=== PATIENT | male | born 1975 | race Caucasian/White ===

== ENCOUNTER 2016-07-18 21:24 | Emergency (ER) | payer OTHER ==
[2016-07-18 21:32] VITALS: BP 124/67; PULSE 96; RESP 20; TEMP 98.2
--- NOTE | 2016-07-18 22:20 | ED ---
SOB HPI - General Chief Complaint: Shortness of Breath Stated Complaint: exposed to chemicals Time Seen by Provider: 07/18/16 21:33 Source: patient, RN notes reviewed Mode of arrival: ambulatory Limitations: no limitations - History of Present Illness Initial Comments: This patient is a 40-year-old man who presents with complaint that he is feeling short of breath and having pain everywhere, including his chest, which developed about 45 minutes after he had used a waterproofing spray on his boots. I have examined the aerosol can which states that the main ingredient is heptane. The patient is complaining of nonproductive cough, shortness of breath. He also complains that his whole body hurts, including his back and neck. He states that he had broken his neck 5 years ago and he has chronic pain. He states that this feels like the worst pain is ever had. MD Complaint: shortness of breath, cough, chest pain Onset/Timin -: hour(s) - Related Data Home Medications Medication Instructions Recorded Confirmed cloNIDine HCL [Catapres] 0.1 mg PO DAILY 07/18/16 07/18/16 Allergies Allergy/AdvReac Type Severity Reaction Status Date / Time No Known Allergies Allergy Verified 07/18/16 21:39 Review of Systems ROS Statement: Those systems with pertinent positive or pertinent negative responses have been documented in the HPI. ROS Other: All systems not noted in ROS Statement are negative. Constitutional: Denies: fever, weakness Respiratory: Reports: cough, dyspnea, wheezes. Denies: hemoptysis Cardiovascular: Reports: chest pain. Denies: palpitations, edema, syncope Gastrointestinal: Denies: abdominal pain, vomiting, diarrhea Genitourinary: Denies: dysuria Musculoskeletal: Reports: back pain, arthralgia, myalgia Skin: Denies: rash, lesions Neurological: Reports: headache. Denies: weakness, numbness Past Medical History Past Medical History: Hypertension History of Any Multi-Drug Resistant Organisms: None Reported Past Surgical History: Orthopedic Surgery Additional Past Surgical History / Comment(s): CERVIAL SPINE FUSION Past Psychological History: Anxiety Smoking Status: Current every day smoker Past Alcohol Use History: Rare Past Drug Use History: Marijuana General Exam Limitations: no limitations General appearance: alert, in no apparent distress, anxious Head exam: Present: atraumatic, normocephalic Eye exam: Present: normal appearance. Absent: scleral icterus, conjunctival injection ENT exam: Present: normal oropharynx Neck exam: Present: normal inspection, full ROM. Absent: tenderness Respiratory exam: Present: wheezes (There is a trace expiratory wheeze). Absent : respiratory distress, rales, rhonchi, stridor, accessory muscle use, decreased breath sounds, prolonged expiratory Cardiovascular Exam: Present: regular rate, normal rhythm, normal heart sounds. Absent: systolic murmur, diastolic murmur, rubs, gallop GI/Abdominal exam: Present: soft. Absent: tenderness, guarding, rebound Extremities exam: Present: normal inspection. Absent: pedal edema, calf tenderness Back exam: Present: normal inspection. Absent: vertebral tenderness Neurological exam: Present: alert Skin exam: Present: warm, dry, intact, normal color. Absent: rash Course Vital Signs 07/18/16 21:28 Temperature 98.2 F Pulse Rate 96 Respiratory 20 Rate Blood Pressure 124/67 O2 Sat by Pulse 98 Oximetry Medical Decision Making - Medical Decision Making This patient is a 41-year-old man with inhalational exposure to a water resistant spray that contained heptane. The patient grew tired of waiting for his repeat chest x-ray and walked out. I did discuss warning signs and symptoms with his significant other who remained behind, and she will bring him back should any these develop. Disposition Clinical Impression: Exposure to chemical inhalation Disposition: Left Against Medical Advice Condition: Undetermined Referrals: Neil Portillo DO [Primary Care Provider] - 1-2 days
[2016-07-18] MEDS ORDERED: IBUPROFEN 400 MG TAB PO STA (22:21)
--- NOTE | 2016-07-18 22:33 | XR ---
EXAMINATION TYPE: XR chest 2V DATE OF EXAM: 07/18/2016 10:27 PM COMPARISON: NONE HISTORY: Cough and short of breath TECHNIQUE: Frontal and lateral views of the chest are obtained. FINDINGS: Heart and mediastinum are normal. Lungs are clear. There are no hilar masses. There are ol d left-sided healed rib fractures. Cervical spine fusion surgery is noted. IMPRESSION: No active cardiopulmonary disease. Normal heart.
== END 2016-07-19 00:34 | disposition left against medical advice (07) ==
LOC: EC 21:24
DX: Z77.028 Contact with and (suspected) exposure to other hazardous aromatic compounds (principal); R06.02 Shortness of breath; R07.9 Chest pain, unspecified; X58.XXXA Exposure to other specified factors, initial encounter; I10 Essential (primary) hypertension; Z98.1 Arthrodesis status; F17.200 Nicotine dependence, unspecified, uncomplicated; Z79.899 Other long term (current) drug therapy
CPT/HCPCS: 71020; 99284

== ENCOUNTER → 2016-08-14 | Outpatient (CLI) | payer OTHER ==
--- NOTE | 2016-08-14 08:55 | MR ---
MRI CERVICAL SPINE: CLINICAL HISTORY: Cervicalgia, radiculopathy, and dislocation of unspecified cervical vertebra all pe r order. Headache with neck pain and extremity numbness since October 2001 after injury and surgery. TECHNIQUE: Multiplanar, multisequence imaging of the cervical spine is performed without and with IV contrast, 15 cc of gadolinium was given intravenously. COMPARISON: Outside MRI cervical spine report November 06, 2011. FINDINGS: Sagittal images of the cervical spine show the craniocervical junction to appear within nor mal limits. The cervical and upper thoracic spinal cord is normal in course, caliber, and signal. V ertebral alignment is satisfactory. There is artifact from posterior fusion hardware from C5 through T1 levels bilaterally. The vertebral body and intravertebral disk heights are normal above and below surgical levels. Minimal height loss anterior superior C7 endplate is noted. No suspicious disc manpreet iations are seen. The bone marrow signal intensity is within normal limits. No suspicious postcontras t enhancement is noted. Axial images show C2-C3 level to appear within normal limits currently. Axial images at C3-C4 level show broad-based right paracentral disc protrusion effacing anterior thec al sac. There are uncovertebral facet degenerative changes bilaterally contributing to moderate right -sided neural foraminal narrowing on axial image 48. Left-sided neural foramen is patent. Axial images at C4-C5 level show posterior spur disc complex minimally effacing anterior thecal sac, bilateral neural foramina are felt patent. Axial images at C5-C6 level show artifact from posterior fusion hardware. There is right paracentral spur disc complex mildly effacing anterior thecal sac on axial image 31. Bilateral neural foramina ar e patent. Axial images at C6-C7 level show artifact from posterior fusion hardware, bilateral neural foramina a re patent. Spinal canal is well preserved. Axial images at C7-T1 level show similar findings to C6-C7 level. IMPRESSION: Satisfactory alignment after interval posterior fusion surgery with some multilevel degen erative changes seen as detailed above, new degenerative finding C3-C4 level suspected based on prior report.
== END ==
LOC: RADMRIMAIN 07:40
PROVIDERS: ATTEND Neurological Surgery
DX: M50.31 Other cervical disc degeneration, high cervical region (principal)
CPT/HCPCS: 72156; A9577

== ENCOUNTER → 2016-10-12 | Outpatient (CLI) | payer OTHER ==
--- NOTE | 2016-10-12 09:54 | US ---
EXAMINATION TYPE: US carotid duplex BILAT DATE OF EXAM: 10/12/2016 9:39 AM COMPARISON: NONE CLINICAL HISTORY: H53.7 blurred vision. Blurred vision EXAM MEASUREMENTS: RIGHT: Peak Systolic Velocity (PSV) cm/sec ----- Right CCA: 106.2 ----- Right ICA: 119.5 ----- Right ECA: 115.1 ICA/CCA ratio: 1.1 RIGHT: End Diastole cm/sec ----- Right CCA: 35.0 ----- Right ICA: 49.8 ----- Right ECA: 17.2 LEFT: Peak Systolic Velocity (PSV) cm/sec ----- Left CCA: 123.2 ----- Left ICA: 132.7 ----- Left ECA: 116.6 ICA/CCA ratio: 1.1 LEFT: End Diastole cm/sec ----- Left CCA: 38.6 ----- Left ICA: 41.7 ----- Left ECA: 15.7 VERTEBRALS (direction of flow): Right Vertebral: Antegrade Left Vertebral: Antegrade Bilateral intimal thickening, elevated velocities: left proximal CCA and left proximal ICA, no signif icant stenosis IMPRESSION: 1. Bilateral intimal thickening with no significant hemodynamic stenosis.
--- NOTE | 2016-10-14 12:28 | ECHOF ---
Referral Reason:H54.7 loss of vision MEASUREMENTS -------- HEIGHT: 177.8 cm WEIGHT: 77.1 kg BP: 115/55 RVIDd: 2.9 cm (< 3.3) IVSd: 0.9 cm (0.6 - 1.1) LVIDd: 4.6 cm (3.9 - 5.3) LVPWd: 0.9 cm (0.6 - 1.1) IVSs: 1.5 cm LVIDs: 3.3 cm LVPWs: 1.7 cm LA Diam: 3.5 cm (2.7 - 3.8) LAESV Index (A-L): 28.65 ml/m Ao Diam: 2.8 cm (2.0 - 3.7) AV Cusp: 2.3 cm (1.5 - 2.6) MV EXCURSION: 17.007 mm (> 18.000) MV EF SLOPE: 130 mm/s (70 - 150) EPSS: 0.4 cm MV E Jenaro: 0.85 m/s MV DecT: 280 ms MV A Jenaro: 0.66 m/s MV E/A Ratio: 1.29 FINDINGS -------- Sinus rhythm. This was a technically good study. The left ventricular size is normal. Left ventricular wall thickness is normal. Overall left ventricular systolic function is normal with, an EF between 60 - 65 %. The right ventricle is normal in size. Normal LA size by volume 22+/-6 ml/m2. The right atrium is normal in size. The aortic valve is trileaflet and appears structurally normal. The mitral valve is normal. The tricuspid valve appears structurally normal. The pulmonic valve is normal. The aortic root, ascending aorta and aortic arch are normal. Normal inferior vena cava with normal inspiratory collapse consistent with estimated right atrial pressure of 5 mmHg. The pericardium is normal. CONCLUSIONS -------- 1. Sinus rhythm. 2. The mitral valve is normal. 3. The tricuspid valve appears structurally normal. 4. The pulmonic valve is normal. 5. The aortic root, ascending aorta and aortic arch are normal. 6. Normal inferior vena cava with normal inspiratory collapse consistent with estimated right atrial pressure of 5 mmHg. 7. The pericardium is normal. 8. This was a technically good study. 9. The left ventricular size is normal. 10. Left ventricular wall thickness is normal. 11. Overall left ventricular systolic function is normal with, an EF between 60 - 65 %. 12. The right ventricle is normal in size. 13. Normal LA size by volume 22+/-6 ml/m2. 14. The right atrium is normal in size. 15. The aortic valve is trileaflet and appears structurally normal. [employer]: Jessica Allred RDCS
== END | disposition home or self-care (01) ==
LOC: RADUSMAIN 09:10
PROVIDERS: ATTEND Family Medicine
DX: I77.89 Other specified disorders of arteries and arterioles (principal); H54.7 Unspecified visual loss; H53.8 Other visual disturbances
CPT/HCPCS: 93306; 93880

== ENCOUNTER 2016-11-02 10:56 | Emergency (ER) | payer OTHER ==
[2016-11-02 11:01] VITALS: BP 120/82; PULSE 94; RESP 20; TEMP 97.5
--- NOTE | 2016-11-02 12:49 | ED ---
Wound/Laceration HPI - General Chief Complaint: Wound/Laceration Stated Complaint: laceration Time Seen by Provider: 11/02/16 11:40 Source: patient, RN notes reviewed Mode of arrival: wheelchair Limitations: no limitations - History of Present Illness Initial Comments: Patient is a 41-year-old male presents to the emergency room for evaluation right thumb laceration and left thumb pain. Patient states he cut his right thumb with a pocket knife earlier today. Patient states out of anger he went and threw a bag with his left hand and injured his left thumb. Patient states that he is having 8 out of 10 pain in his left thumb. Patient states he has barely has any pain in his right thumb where the laceration site is. Patient states his last tetanus vaccine was about a year ago. Patient denies any numbness or tingling in any of his thumbs. Patient denies taking blood thinners. Patient denies any other injuries during incident. - Related Data Home Medications Medication Instructions Recorded Confirmed No Known Home Medications [No 11/02/16 11/02/16 Known Home Medications] Allergies Allergy/AdvReac Type Severity Reaction Status Date / Time No Known Allergies Allergy Verified 11/02/16 11:01 Review of Systems ROS Statement: Those systems with pertinent positive or pertinent negative responses have been documented in the HPI. ROS Other: All systems not noted in ROS Statement are negative. Past Medical History Past Medical History: Hypertension History of Any Multi-Drug Resistant Organisms: None Reported Past Surgical History: Orthopedic Surgery Additional Past Surgical History / Comment(s): CERVIAL SPINE FUSION Past Psychological History: Anxiety Smoking Status: Current every day smoker Past Alcohol Use History: Rare Past Drug Use History: Marijuana General Exam - General Exam Comments Initial Comments: Sitting in exam room, no acute distress. Limitations: no limitations General appearance: alert, in no apparent distress Head exam: Present: atraumatic, normocephalic, normal inspection Eye exam: Present: normal appearance ENT exam: Present: normal exam Neck exam: Present: normal inspection Respiratory exam: Absent: respiratory distress Left Forearm Wrist exam: Present: tenderness over anatomical snuff box Hand Wrist exam: Present: tenderness (Tenderness on palpating over the base of the thumb and proximal phalanx of the thumb) Neuro motor exam: Present: wrist extension intact Vascular: Present: normal capillary refill (Capillary refill less than 2 seconds ), radial pulse (2+), ulnar pulse (2+) Right Hand Wrist exam: Present: full ROM, laceration (2cm L shaped laceration on the palmar portion of the distal phalanx of the right thumb, no active bleeding.). Absent: normal inspection Vascular: Present: normal capillary refill (Capillary refill less than 2 seconds ), radial pulse (2+), ulnar pulse (2+) Back exam: Present: normal inspection Neurological exam: Present: alert, oriented X3 Psychiatric exam: Present: normal affect, normal mood Skin exam: Present: warm, dry. Absent: rash Course Vital Signs 11/02/16 10:58 Temperature 97.5 F L Pulse Rate 94 Respiratory 20 Rate Blood Pressure 120/82 O2 Sat by Pulse 98 Oximetry Medical Decision Making - Medical Decision Making Patient is a 38-year-old male presents to the emergency room for evaluation of right thumb laceration and left thumb pain. Patient refused stitches for right thumb. Explained to patient increase risk of infection. Patient still refused stitches and just wanted a bandage. Left hand x-ray shows no acute fractures or dislocations. However patient does have anatomical snuffbox tenderness. Plan was to place patient in a thumb spica splint, follow up with photogrammetric compilation specialist and send him home with antibiotics for right thumb laceration since patient did not want stitches. Patient left before discharge or splint placed. Disposition Clinical Impression: Laceration of right thumb, Left thumb sprain Disposition: Left Against Medical Advice Condition: Stable Instructions: Finger Laceration (ED), Suspected Fracture (ED) Referrals: Neil Portillo DO [Primary Care Provider] - 1-2 days Time of Disposition: 13:39
--- NOTE | 2016-11-02 13:12 | XR ---
EXAMINATION TYPE: XR hand complete LT DATE OF EXAM: 11/02/2016 12:59 PM COMPARISON: NONE HISTORY: Pain TECHNIQUE: Three views are submitted. FINDINGS: The osseous structures are intact. The joint spaces are preserved and there is no acute fracture or dislocation. IMPRESSION: 1. No definite acute fracture or dislocation if symptoms persist, follow-up study in 7 to 10 days wo uld be suggested
== END 2016-11-02 13:39 | disposition left against medical advice (07) ==
LOC: EC 10:56
DX: S63.602A Unspecified sprain of left thumb, initial encounter (principal); S61.011A Laceration without foreign body of right thumb without damage to nail, initial encounter; F17.200 Nicotine dependence, unspecified, uncomplicated; W21.09XA Struck by other hit or thrown ball, initial encounter; W26.0XXA Contact with knife, initial encounter
CPT/HCPCS: 99282

== ENCOUNTER 2016-12-09 22:24 | Emergency (ER) | payer OTHER ==
[2016-12-09 22:40] VITALS: TEMP 97.5
[2016-12-09] MEDS ORDERED: KETOROLAC 30 MG/ML 1 ML VIAL IVP STA (22:57)
[2016-12-09] MEDS ORDERED: SODIUM CHLORIDE 0.9% 1,000 ML IV STA ×2 (22:57)
[2016-12-09] MEDS ORDERED: ONDANSETRON 4 MG/2 ML VIAL IVP STA (22:57)
--- NOTE | 2016-12-09 23:16 | ED ---
Abdominal Pain HPI - General Chief Complaint: Abdominal Pain Stated Complaint: Abd Pain Time Seen by Provider: 12/09/16 22:46 Source: patient, RN notes reviewed, old records reviewed Mode of arrival: ambulatory Limitations: no limitations - History of Present Illness Initial Comments: 41-year-old male presents the ED chief complaint of diffuse abdominal pain for the past 2 days. Patient states that he has this similar pain off and on for the past few months. Patient reports these haven't multiple to the vomiting since eating with a pizza this morning. Denies any surgical history. Patient states that the pain is mainly in the mid to lower abdomen. He reports that he has a family history of Crohn's disease. Denies any blood in his stools or vomit. He states that he did have a normal bowel movement earlier today. Patient denies any recent fever, chills, shortness of breath, chest pain, back pain, numbness or tingling, dysuria or hematuria, constipation or diarrhea, headaches or visual changes, or any other current symptoms - Related Data Home Medications Medication Instructions Recorded Confirmed Multivitamins, Thera [Multivitamin 1 tab PO DAILY 12/12/16 12/12/16 (formulary)] Hickman-3/Dha/Epa/Fish Oil [Fish Oil 1 cap PO DAILY 12/12/16 12/12/16 500 mg Softgel] Allergies Allergy/AdvReac Type Severity Reaction Status Date / Time No Known Allergies Allergy Verified 12/12/16 20:06 Review of Systems ROS Statement: Those systems with pertinent positive or pertinent negative responses have been documented in the HPI. ROS Other: All systems not noted in ROS Statement are negative. Past Medical History Past Medical History: Hypertension Additional Past Medical History / Comment(s): ulcerative colitis History of Any Multi-Drug Resistant Organisms: None Reported Past Surgical History: Orthopedic Surgery Additional Past Surgical History / Comment(s): CERVIAL SPINE FUSION Past Psychological History: Anxiety Smoking Status: Current every day smoker Past Alcohol Use History: Rare Past Drug Use History: Marijuana General Exam Limitations: no limitations General appearance: alert, in no apparent distress Head exam: Present: atraumatic, normocephalic, normal inspection Eye exam: Present: normal appearance, PERRL, EOMI. Absent: scleral icterus, conjunctival injection, periorbital swelling ENT exam: Present: normal exam, mucous membranes moist Neck exam: Present: normal inspection. Absent: tenderness, meningismus, lymphadenopathy Respiratory exam: Present: normal lung sounds bilaterally. Absent: respiratory distress, wheezes, rales, rhonchi, stridor Cardiovascular Exam: Present: regular rate, normal rhythm, normal heart sounds. Absent: systolic murmur, diastolic murmur, rubs, gallop, clicks GI/Abdominal exam: Present: soft, normal bowel sounds. Absent: distended, tenderness, guarding, rebound, rigid Extremities exam: Present: normal inspection, full ROM, normal capillary refill. Absent: tenderness, pedal edema, joint swelling, calf tenderness Back exam: Present: normal inspection Neurological exam: Present: alert, oriented X3, CN II-XII intact Psychiatric exam: Present: normal affect Skin exam: Present: warm, dry, intact, normal color. Absent: rash Course Vital Signs 12/09/16 12/10/16 22:35 00:39 Temperature 97.5 F L Pulse Rate 79 68 Respiratory 16 20 Rate Blood Pressure 127/90 141/89 O2 Sat by Pulse 95 100 Oximetry Medical Decision Making - Medical Decision Making 41-year-old male presents the ED chief complaint of diffuse abdominal pain for the past 2 days. Patient states that he has this similar pain off and on for the past few months. Patient reports these haven't multiple to the vomiting since eating with a pizza this morning. Denies any surgical history. Patient states that the pain is mainly in the mid to lower abdomen. He reports that he has a family history of Crohn's disease. Denies any blood in his stools or vomit. He states that he did have a normal bowel movement earlier today. PAtient does have diffuse tenderness. Labs reviewed, negative for significant acute process. Patient case discussed with Dr. Le, discussed that it is unusual for ileous without previous surgery. Recommended CT scan with patient pain. Patient then refused CT scan and rectal exam. Discussed that patient will sign AMA And will be given Rx for bentyl and zofran if this may help. Discussed risk of leaving. Patient is adament. Patient will be discharged AMA. - Lab Data Result diagrams: 12/09/16 23:00 12/09/16 23:00 Lab Results 12/09/16 12/09/16 12/09/16 Range/Units 23:00 23:00 23:00 WBC 9.0 (3.8-10.6) k/uL RBC 4.53 (4.30-5.90) m/uL Hgb 14.5 (13.0-17.5) gm/dL Hct 41.4 (39.0-53.0) % MCV 91.2 (80.0-100.0) fL MCH 32.0 (25.0-35.0) pg MCHC 35.0 (31.0-37.0) g/dL RDW 12.6 (11.5-15.5) % Plt Count 233 (150-450) k/uL Neutrophils % 70 % Lymphocytes % 23 % Monocytes % 5 % Eosinophils % 1 % Basophils % 0 % Neutrophils # 6.3 (1.3-7.7) k/uL Lymphocytes # 2.0 (1.0-4.8) k/uL Monocytes # 0.4 (0-1.0) k/uL Eosinophils # 0.1 (0-0.7) k/uL Basophils # 0.0 (0-0.2) k/uL PT 10.5 (9.0-12.0) sec INR 1.0 (<1.1) APTT 23.3 (22.0-30.0) sec Sodium 141 (137-145) mmol/L Potassium 4.3 (3.5-5.1) mmol/L Chloride 108 H (98-107) mmol/L Carbon Dioxide 24 (22-30) mmol/L Anion Gap 9 mmol/L BUN 11 (9-20) mg/dL Creatinine 0.80 (0.66-1.25) mg/dL Est GFR (MDRD) Af Amer >60 (>60 ml/min/1.73 sqM) Est GFR (MDRD) Non-Af >60 (>60 ml/min/1.73 sqM) Glucose 88 (74-99) mg/dL Calcium 9.6 (8.4-10.2) mg/dL Total Bilirubin 0.7 (0.2-1.3) mg/dL AST 27 (17-59) U/L ALT 30 (21-72) U/L Alkaline Phosphatase 54 (38-126) U/L Troponin I (0.000-0.034) ng/mL Total Protein 6.6 (6.3-8.2) g/dL Albumin 4.1 (3.5-5.0) g/dL Amylase <30 L (30-110) U/L Lipase 33 (23-300) U/L Urine Color Urine Appearance (Clear) Urine pH (5.0-8.0) Ur Specific [place] (1.001-1.035) Urine Protein (Negative) Urine Glucose (UA) (Negative) Urine Ketones (Negative) Urine Blood (Negative) Urine Nitrite (Negative) Urine Bilirubin (Negative) Urine Urobilinogen (<2.0) mg/dL Ur Leukocyte Esterase (Negative) 12/09/16 12/10/16 Range/Units 23:00 00:19 WBC (3.8-10.6) k/uL RBC (4.30-5.90) m/uL Hgb (13.0-17.5) gm/dL Hct (39.0-53.0) % MCV (80.0-100.0) fL MCH (25.0-35.0) pg MCHC (31.0-37.0) g/dL RDW (11.5-15.5) % Plt Count (150-450) k/uL Neutrophils % % Lymphocytes % % Monocytes % % Eosinophils % % Basophils % % Neutrophils # (1.3-7.7) k/uL Lymphocytes # (1.0-4.8) k/uL Monocytes # (0-1.0) k/uL Eosinophils # (0-0.7) k/uL Basophils # (0-0.2) k/uL PT (9.0-12.0) sec INR (<1.1) APTT (22.0-30.0) sec Sodium (137-145) mmol/L Potassium (3.5-5.1) mmol/L Chloride (98-107) mmol/L Carbon Dioxide (22-30) mmol/L Anion Gap mmol/L BUN (9-20) mg/dL Creatinine (0.66-1.25) mg/dL Est GFR (MDRD) Af Amer (>60 ml/min/1.73 sqM) Est GFR (MDRD) Non-Af (>60 ml/min/1.73 sqM) Glucose (74-99) mg/dL Calcium (8.4-10.2) mg/dL Total Bilirubin (0.2-1.3) mg/dL AST (17-59) U/L ALT (21-72) U/L Alkaline Phosphatase (38-126) U/L Troponin I <0.012 (0.000-0.034) ng/mL Total Protein (6.3-8.2) g/dL Albumin (3.5-5.0) g/dL Amylase (30-110) U/L Lipase (23-300) U/L Urine Color Light Yellow Urine Appearance Clear (Clear) Urine pH 8.0 (5.0-8.0) Ur Specific [place] 1.005 (1.001-1.035) Urine Protein Negative (Negative) Urine Glucose (UA) Negative (Negative) Urine Ketones Negative (Negative) Urine Blood Negative (Negative) Urine Nitrite Negative (Negative) Urine Bilirubin Negative (Negative) Urine Urobilinogen <2.0 (<2.0) mg/dL Ur Leukocyte Esterase Negative (Negative) - Radiology Data Radiology results: report reviewed Abdominal xray shows generalized ileus. Disposition Clinical Impression: Abdominal pain Disposition: Left Against Medical Advice Condition: Good Instructions: Abdominal Pain (ED) Additional Instructions: Patient needs to follow-up with his primary physician. He can take the medication as directed. Rest, remain hydrated. Her liquid diet for the next 48 hours. Referrals: Neil Portillo DO [Primary Care Provider] - 1-2 days Time of Disposition: 00:46
[2016-12-09 23:43] LABS: Basophils % (A) 0 %; CH 32.4; CHCM 35.7; Eosinophils # (A) 0.1 k/uL (0-0.7); Eosinophils % (A) 1 %; HCT 41.4 % (39.0-53.0); HDW 2.35; HGB 14.5 gm/dL (13.0-17.5); Luc # (Auto) 0.12; Luc % (Auto) 1; Lymphocytes % (A) 23 %; MCV 91.2 fL (80.0-100.0); Mean Platelet Volume 7.5; Monocytes # (A) 0.4 k/uL (0-1.0); Monocytes % (A) 5 %; Neutrophils # (A) 6.3 k/uL (1.3-7.7); Neutrophils % (A) 70 %; RBC 4.53 m/uL (4.30-5.90); RDW 12.6 % (11.5-15.5); WBC (Perox) 8.49
[2016-12-09 23:54] LABS: ALT 30 U/L (21-72); AST 27 U/L (17-59); Alkaline Phosphatase 54 U/L (38-126); Amylase <30 U/L (30-110); Anion Gap 9 mmol/L; Blood Urea Nitrogen 11 mg/dL (9-20); Calcium 9.6 mg/dL (8.4-10.2); Carbon Dioxide 24 mmol/L (22-30); Chloride 108 mmol/L (98-107); Glucose 88 mg/dL (74-99); Non-African American GFR(MDRD) >60 (>60 ml/min/1.73 sqM); Potassium 4.3 mmol/L (3.5-5.1); Sodium 141 mmol/L (137-145); Total Bilirubin 0.7 mg/dL (0.2-1.3); Total Protein 6.6 g/dL (6.3-8.2)
[2016-12-09 23:58] LABS: Partial Thromboplastin Time 23.3 sec (22.0-30.0); Prothrombin Time 10.5 sec (9.0-12.0)
--- NOTE | 2016-12-10 00:15 | XR ---
EXAM: XR Abdomen, 1 View CLINICAL HISTORY: Abdominal pain. TECHNIQUE: Frontal supine view of the abdomen/pelvis. Total images: 2. COMPARISON: No relevant prior studies available. FINDINGS: Intraperitoneal space: No free air. Gastrointestinal tract: No significant distention of small bowel loops to suggest obstruction. Moderate colonic gas with some air-fluid levels at the right abdomen. Bones/joints: Unremarkable as visualized. IMPRESSION: 1. No evidence of small bowel obstruction. 2. Possible colonic ileus. 3. No free air.
[2016-12-10] MEDS ORDERED: DICYCLOMINE 10 MG/ML 2 ML AMP IM STA (00:28)
[2016-12-10 00:29] LABS: Appearance,Urine Clear (Clear); Bilirubin,Urine Negative (Negative); Glucose,Urine (UA) Negative (Negative); Ketones,Urine Negative (Negative); Leukocyte Esterase,Urine Negative (Negative); Nitrite,Urine Negative (Negative); Protein,Urine Negative (Negative); Specific Gravity,Urine 1.005 (1.001-1.035); UA Billing (MACRO vs. MICRO) CHEM; Urobilinogen,Urine <2.0 mg/dL (<2.0)
[2016-12-10] MEDS ORDERED: SODIUM CHLORIDE 0.9% 1,000 ML IV ONE (00:38)
[2016-12-10] MEDS ORDERED: RX INFO: IV CONTRAST WAS GIVEN 1 EACH MISC MISCELLANE PRN (00:38)
[2016-12-10 00:47] VITALS: BP 141/89; PULSE 68; RESP 20
== END 2016-12-10 00:59 | disposition left against medical advice (07) ==
LOC: EC 22:24
DX: R10.84 Generalized abdominal pain (principal); F17.200 Nicotine dependence, unspecified, uncomplicated; Z87.19 Personal history of other diseases of the digestive system; Z53.29 Procedure and treatment not carried out because of patient's decision for other reasons; Z79.899 Other long term (current) drug therapy
CPT/HCPCS: 99284; 96372; 96374; 96375; 96361 ×2; 36415; 80053; 82150; 83690; 84484; 85025; 85610; 85730; 81003; 74000; J0500; J2405; J1885

== ENCOUNTER 2016-12-12 19:38 | Observation (INO) | payer OTHER ==
[2016-12-12] MEDS ORDERED: SODIUM CHLORIDE 0.9% 1,000 ML IV ONE (20:05)
[2016-12-12] MEDS ORDERED: KETOROLAC 30 MG/ML 1 ML VIAL IVP STA (20:06)
[2016-12-12] MEDS ORDERED: ONDANSETRON 4 MG/2 ML VIAL IVP STA (20:06)
--- NOTE | 2016-12-12 20:09 | ED ---
Abdominal Pain HPI <Bharathi Santo - Last Filed: 12/12/16 21:47> - General Source: patient, RN notes reviewed Mode of arrival: ambulatory Limitations: no limitations <Sindhu Rice - Last Filed: 12/12/16 23:50> - General Chief Complaint: Abdominal Pain Stated Complaint: abd pain-return visit Time Seen by Provider: 12/12/16 19:50 - History of Present Illness Initial Comments: Patient is a 41-year-old male presents to the emergency room for evaluation of abdominal pain. Patient states he was here about 3 days ago with abdominal pain. Patient states they did blood work and he was about to send him to a CT scan and patient freaked out. Patient states that he was feeling better and the CT scan worried him so he left AGAINST MEDICAL ADVICE. Patient states yesterday the pain was worsening so he went to [facility]. Patient states they redid blood work and sent him to a CT scan told him he had appendicitis. Patient states he made all the way into the operating room and then freaked out and again left AGAINST MEDICAL ADVICE. Patient states the the abdominal pain has subsided today. Patient states he is feeling a little better than he was over the past few days. Patient states that his family talked him into coming to the emergency room to get his appendix out. Patient states he is having 3 out of 10 right lower quadrant pain. Patient states he still nauseous but denies any vomiting today. Patient denies any history of abdominal surgeries. Patient denies any new or worsening symptoms today. Patient denies fevers or chills. (Sindhu Rice) - Related Data Home Medications Medication Instructions Recorded Confirmed Multivitamins, Thera [Multivitamin 1 tab PO DAILY 12/12/16 12/12/16 (formulary)] [place]-3/Dha/Epa/Fish Oil [Fish Oil 1 cap PO DAILY 12/12/16 12/12/16 500 mg Softgel] Allergies Allergy/AdvReac Type Severity Reaction Status Date / Time No Known Allergies Allergy Verified 12/12/16 20:06 Review of Systems ROS Other: All systems not noted in ROS Statement are negative. <Bharathi Santo - Last Filed: 12/12/16 21:47> ROS Other: All systems not noted in ROS Statement are negative. <Sindhu Rice - Last Filed: 12/12/16 23:50> ROS Statement: Those systems with pertinent positive or pertinent negative responses have been documented in the HPI. Past Medical History Past Medical History: Hypertension Additional Past Medical History / Comment(s): ulcerative colitis History of Any Multi-Drug Resistant Organisms: None Reported Past Surgical History: Orthopedic Surgery Additional Past Surgical History / Comment(s): CERVIAL SPINE FUSION Past Psychological History: Anxiety Smoking Status: Current every day smoker Past Alcohol Use History: Rare Past Drug Use History: Marijuana <Sindhu Rice - Last Filed: 12/12/16 23:50> General Exam <Bharathi Santo - Last Filed: 12/12/16 21:47> Limitations: no limitations General appearance: alert, in no apparent distress Head exam: Present: atraumatic, normocephalic, normal inspection Eye exam: Present: normal appearance ENT exam: Present: normal exam Neck exam: Present: normal inspection Respiratory exam: Present: normal lung sounds bilaterally. Absent: respiratory distress Cardiovascular Exam: Present: regular rate, normal rhythm, normal heart sounds GI/Abdominal exam: Present: soft, tenderness (Right lower quadrant), normal bowel sounds. Absent: distended, guarding, rebound, rigid Extremities exam: Present: normal inspection Back exam: Present: normal inspection Neurological exam: Present: alert, oriented X3, CN II-XII intact, normal gait Psychiatric exam: Present: normal affect, normal mood Skin exam: Present: warm, dry, intact, normal color. Absent: rash <Sindhu Rice - Last Filed: 12/12/16 23:50> - General Exam Comments Initial Comments: Laying in exam room, no acute distress. (Sindhu Rice) Medical Decision Making - Lab Data Result diagrams: 12/12/16 20:45 12/12/16 20:45 <Bharathi Santo - Last Filed: 12/12/16 21:47> - Lab Data Result diagrams: 12/12/16 20:45 12/12/16 20:45 - Radiology Data Radiology results: report reviewed, image reviewed <Sindhu Rice - Last Filed: 12/12/16 23:50> - Medical Decision Making I have seen and evaluated the patient, conducting history and physical. Agree with the physician clerical assistant management of this point. Have discussed the case with Dr. Scales the on-call surgeon, who at this point states she would defer to the wishes of Dr. Khanna who has seen the patient initially. I then spoke with Dr. Russell who is covering tonight for Dr. Khanna and requests that the patient be seen by Dr. Scales, as he seems to be a city call patient. (Bharathi Santo) Patient is a 41-year-old male presents emergency room for evaluation of abdominal pain. Patient was seen at [facility] twice within the past [address] Ferraro at [facility] spoke to me about patient. Dr. Ferraro saw patient on 12/10/16 and he underwent a CT scan and report noted "elongated predominantly rounded structure at the base of the cecum may reflect mucoceal of the appendix or Mucocyst neoplasm given the lack of surrounding inflammatory change. Appendicitis however is not excluded". After patient received CT scan he left AGAINST MEDICAL ADVICE. Dr. Ferraro stated blood cultures came back for gram-positive cocci and patient was advised to return to the emergency room yesterday. On-call surgeon, Dr. Khanna evaluated patient and was taking him up to the OR when patient left AGAINST MEDICAL ADVICE again. Abdomen/pelvis CT was performed again today. CT significant for acute appendicitis. Dr. Santo did end up calling Dr. Scales again who agreed to admit patient. Patient will be started on Zosyn and reevaluated tomorrow morning. (Sindhu Rice) - Lab Data Lab Results 12/12/16 12/12/16 12/12/16 Range/Units 20:45 20:45 20:45 WBC 8.1 (3.8-10.6) k/uL RBC 4.44 (4.30-5.90) m/uL Hgb 14.7 (13.0-17.5) gm/dL Hct 40.8 (39.0-53.0) % MCV 91.9 (80.0-100.0) fL MCH 33.0 (25.0-35.0) pg MCHC 35.9 (31.0-37.0) g/dL RDW 12.8 (11.5-15.5) % Plt Count 243 (150-450) k/uL Neutrophils % 56 % Lymphocytes % 33 % Monocytes % 6 % Eosinophils % 1 % Basophils % 1 % Neutrophils # 4.6 (1.3-7.7) k/uL Lymphocytes # 2.7 (1.0-4.8) k/uL Monocytes # 0.5 (0-1.0) k/uL Eosinophils # 0.1 (0-0.7) k/uL Basophils # 0.1 (0-0.2) k/uL Sodium 145 (137-145) mmol/L Potassium 3.9 (3.5-5.1) mmol/L Chloride 109 H (98-107) mmol/L Carbon Dioxide 25 (22-30) mmol/L Anion Gap 11 mmol/L BUN 12 (9-20) mg/dL Creatinine 0.80 (0.66-1.25) mg/dL Est GFR (MDRD) Af Amer >60 (>60 ml/min/1.73 sqM) Est GFR (MDRD) Non-Af >60 (>60 ml/min/1.73 sqM) Glucose 83 (74-99) mg/dL Plasma Lactic Acid Kvng (0.7-2.0) mmol/L Calcium 9.5 (8.4-10.2) mg/dL Total Bilirubin 0.3 (0.2-1.3) mg/dL AST 17 (17-59) U/L ALT 28 (21-72) U/L Alkaline Phosphatase 63 (38-126) U/L Total Protein 6.8 (6.3-8.2) g/dL Albumin 4.3 (3.5-5.0) g/dL Amylase <30 L (30-110) U/L Lipase 55 (23-300) U/L Urine Color Yellow Urine Appearance Clear (Clear) Urine pH 5.5 (5.0-8.0) Ur Specific [place] 1.028 (1.001-1.035) Urine Protein Trace H (Negative) Urine Glucose (UA) Negative (Negative) Urine Ketones Trace H (Negative) Urine Blood Negative (Negative) Urine Nitrite Negative (Negative) Urine Bilirubin Negative (Negative) Urine Urobilinogen 3.0 (<2.0) mg/dL Ur Leukocyte Esterase Negative (Negative) 12/12/16 Range/Units 20:45 WBC (3.8-10.6) k/uL RBC (4.30-5.90) m/uL Hgb (13.0-17.5) gm/dL Hct (39.0-53.0) % MCV (80.0-100.0) fL MCH (25.0-35.0) pg MCHC (31.0-37.0) g/dL RDW (11.5-15.5) % Plt Count (150-450) k/uL Neutrophils % % Lymphocytes % % Monocytes % % Eosinophils % % Basophils % % Neutrophils # (1.3-7.7) k/uL Lymphocytes # (1.0-4.8) k/uL Monocytes # (0-1.0) k/uL Eosinophils # (0-0.7) k/uL Basophils # (0-0.2) k/uL Sodium (137-145) mmol/L Potassium (3.5-5.1) mmol/L Chloride (98-107) mmol/L Carbon Dioxide (22-30) mmol/L Anion Gap mmol/L BUN (9-20) mg/dL Creatinine (0.66-1.25) mg/dL Est GFR (MDRD) Af Amer (>60 ml/min/1.73 sqM) Est GFR (MDRD) Non-Af (>60 ml/min/1.73 sqM) Glucose (74-99) mg/dL Plasma Lactic Acid Kvng 0.7 (0.7-2.0) mmol/L Calcium (8.4-10.2) mg/dL Total Bilirubin (0.2-1.3) mg/dL AST (17-59) U/L ALT (21-72) U/L Alkaline Phosphatase (38-126) U/L Total Protein (6.3-8.2) g/dL Albumin (3.5-5.0) g/dL Amylase (30-110) U/L Lipase (23-300) U/L Urine Color Urine Appearance (Clear) Urine pH (5.0-8.0) Ur Specific [place] (1.001-1.035) Urine Protein (Negative) Urine Glucose (UA) (Negative) Urine Ketones (Negative) Urine Blood (Negative) Urine Nitrite (Negative) Urine Bilirubin (Negative) Urine Urobilinogen (<2.0) mg/dL Ur Leukocyte Esterase (Negative) Disposition <Bharathi Santo - Last Filed: 12/12/16 21:47> Decision Date: 12/12/16 <Sindhu Rice L - Last Filed: 12/12/16 23:50> Clinical Impression: Acute appendicitis Disposition: ADMITTED IP TO THIS HOSP Condition: Stable
[2016-12-12 21:12] LABS: Appearance,Urine Clear (Clear); Bilirubin,Urine Negative (Negative); Glucose,Urine (UA) Negative (Negative); Ketones,Urine Trace (Negative); Leukocyte Esterase,Urine Negative (Negative); Nitrite,Urine Negative (Negative); PH, Urine 5.5 (5.0-8.0); Protein,Urine Trace (Negative); Specific Gravity,Urine 1.028 (1.001-1.035); UA Billing (MACRO vs. MICRO) CHEM
[2016-12-12 21:13] LABS: ALT 28 U/L (21-72); AST 17 U/L (17-59); Alkaline Phosphatase 63 U/L (38-126); Amylase <30 U/L (30-110); Anion Gap 11 mmol/L; Blood Urea Nitrogen 12 mg/dL (9-20); Calcium 9.5 mg/dL (8.4-10.2); Carbon Dioxide 25 mmol/L (22-30); Chloride 109 mmol/L (98-107); Glucose 83 mg/dL (74-99); Non-African American GFR(MDRD) >60 (>60 ml/min/1.73 sqM); Potassium 3.9 mmol/L (3.5-5.1); Sodium 145 mmol/L (137-145); Total Bilirubin 0.3 mg/dL (0.2-1.3); Total Protein 6.8 g/dL (6.3-8.2)
[2016-12-12 21:18] LABS: Basophils # (A) 0.1 k/uL (0-0.2); Basophils % (A) 1 %; CH 32.2; CHCM 35.1; Eosinophils # (A) 0.1 k/uL (0-0.7); Eosinophils % (A) 1 %; HCT 40.8 % (39.0-53.0); HDW 2.37; HGB 14.7 gm/dL (13.0-17.5); Luc # (Auto) 0.24; Luc % (Auto) 3; Lymphocytes # (A) 2.7 k/uL (1.0-4.8); Lymphocytes % (A) 33 %; MCHC 35.9 g/dL (31.0-37.0); MCV 91.9 fL (80.0-100.0); Mean Platelet Volume 7.3; Monocytes # (A) 0.5 k/uL (0-1.0); Monocytes % (A) 6 %; Neutrophils # (A) 4.6 k/uL (1.3-7.7); Neutrophils % (A) 56 %; RBC 4.44 m/uL (4.30-5.90); RDW 12.8 % (11.5-15.5); WBC 8.1 k/uL (3.8-10.6); WBC (Perox) 7.67
[2016-12-12] MEDS ORDERED: LORazepam 2 MG/ML SYRINGE IV STA (21:27)
[2016-12-12] MEDS ORDERED: RX INFO: IV CONTRAST WAS GIVEN 1 EACH MISC MISCELLANE PRN (21:45)
--- NOTE | 2016-12-12 22:43 | CT ---
CT abdomen and pelvis with contrast INDICATION: Pain TECHNIQUE: Multiple, contiguous axial cuts of the abdomen and pelvis are obtained from the lung bases to the ischial tuberosities following the administration of IV contrast. Sagittal and coronal reformatted images are available. Radiation Dose: DLP: 397.60mGy-cm COMPARISON: None FINDINGS: Nonsepcific 2-3 mm micronodule at the periphery of the right lower lung lobe (series 7 image 50). No pleural effusion. The liver and spleen are normal in size. Scattered calcifications in the spleen, may be due to old granulomatous disease. The gallbladder, bile ducts and pancreas are grossly normal. The adrenal gland are unremarkable. The kidneys are normal in size and contour. No hydronephrosis. The bladder is under distended limiting evaluation. There is a blind-ending structure in the right lower abdomen which appears to arise from the cecum measuring up to 1.8 cm with surrounding mild hazy fat attenuation most likely representing the appendix. This structure contains a low attenuation focus with a subtle hyperdense periphery at its distal end. Nonspecific scattered loops of fluid and air filled small bowel. Scattered and colonic diverticulosis. No CT evidence for diverticulitis. Hyperdense material is noted throughout colon. Aorta is normal caliber. Mild atherosclerotic calcifications of the abdominal aorta. Degenerative changes of the lumbar spine. Prominent degenerative change at the T12-L1 with a likely calcified posterior disc measuring approximately 3 mm. IMPRESSION: 1. Findings most compatible with appendicitis. No definite drainable fluid collection is identified. 2. Colonic diverticulosis without CT evidence for diverticulitis. 3. Nonsepcific 2-3 mm micronodule at the periphery of the right lower lung lobe. No pleural effusion. Critical Value Communications 12/12/16 22:45 Call Doctor Regarding Appendicitis, called Dr. CHILEL on 12/12 22:44 (-04:00)
[2016-12-12] MEDS ORDERED: KETOROLAC 30 MG/ML 1 ML VIAL IVP PRN (22:58)
[2016-12-12] MEDS ORDERED: ONDANSETRON 4 MG/2 ML VIAL IVP PRN (22:58)
[2016-12-12] MEDS ORDERED: MORPHINE SULFATE 4 MG/ML SYRINGE IV PRN (22:58)
[2016-12-12] MEDS ORDERED: NALOXONE 0.4 MG/ML 1 ML VIAL IV PRN (22:58)
[2016-12-12] MEDS ORDERED: PIPERACILLIN-TAZOBACTAM 3.375 GM in DEXTROSE/WATER 1 50ML.BAG IVPB STA (23:00)
[2016-12-12] MEDS: SODIUM CHLORIDE 0.9% 1,000 ML IV SCH (23:25)
[2016-12-12] MEDS ORDERED: MORPHINE SULFATE 4 MG/ML SYRINGE IV STA (23:27)
[2016-12-13 00:05] VITALS: BMI 24.3
[2016-12-13] MEDS: LORazepam 2 MG/ML SYRINGE IV PRN ×3 (03:00→19:26)
[2016-12-13 06:40] LABS: Basophils % (A) 0 %; CH 31.7; CHCM 33.6; Eosinophils # (A) 0.1 k/uL (0-0.7); Eosinophils % (A) 2 %; HDW 2.41; HGB 13.3 gm/dL (13.0-17.5); Luc # (Auto) 0.06; Luc % (Auto) 1; Lymphocytes # (A) 1.1 k/uL (1.0-4.8); Lymphocytes % (A) 19 %; MCH 32.3 pg (25.0-35.0); MCHC 34.2 g/dL (31.0-37.0); MCV 94.6 fL (80.0-100.0); Mean Platelet Volume 7.1; Monocytes # (A) 0.3 k/uL (0-1.0); Monocytes % (A) 4 %; Neutrophils # (A) 4.4 k/uL (1.3-7.7); Neutrophils % (A) 73 %; RBC 4.12 m/uL (4.30-5.90); RDW 12.6 % (11.5-15.5); WBC (Perox) 6.41
[2016-12-13 06:52] LABS: ALT 19 U/L (21-72); AST 14 U/L (17-59); Alkaline Phosphatase 50 U/L (38-126); Anion Gap 7 mmol/L; Blood Urea Nitrogen 11 mg/dL (9-20); Calcium 8.5 mg/dL (8.4-10.2); Carbon Dioxide 25 mmol/L (22-30); Chloride 111 mmol/L (98-107); Glucose 76 mg/dL (74-99); Non-African American GFR(MDRD) >60 (>60 ml/min/1.73 sqM); Potassium 3.7 mmol/L (3.5-5.1); Sodium 143 mmol/L (137-145); Total Bilirubin 0.8 mg/dL (0.2-1.3); Total Protein 5.7 g/dL (6.3-8.2)
--- NOTE | 2016-12-13 07:53 | P.GSHP ---
History of Present Illness H&P Date: 12/13/16 Chief Complaint: Abdominal pain The patient is a 41-year-old man who is been to the hospital multiple times last week with abdominal pain. Hasn't felt well for about 2 months. He's had some nonspecific abdominal pain. He had quite a bit of nausea and vomiting several days ago. He was seen by Dr. Khanna and was supposed to have a laparoscopic appendectomy however he left AMA. Denies fevers or chills. Denies diarrhea. He returned to the emergency department yesterday because of increasing abdominal discomfort. He is afraid of being in hospitals due to a previous history of a neck injury with a prolonged hospitalization and rehab. - Review of Systems All systems: negative Past Medical History Past Medical History: Hypertension Additional Past Medical History / Comment(s): ulcerative colitis History of Any Multi-Drug Resistant Organisms: None Reported Past Surgical History: Orthopedic Surgery Additional Past Surgical History / Comment(s): CERVIAL SPINE FUSION Past Psychological History: Anxiety Smoking Status: Current every day smoker Past Alcohol Use History: Rare Past Drug Use History: Marijuana - Past Family History Father Family Medical History: No Reported History Additional Family Medical History / Comment(s): Family history of Crohn's disease Medications and Allergies Home Medications Medication Instructions Recorded Confirmed Type Multivitamins, Thera [Multivitamin 1 tab PO DAILY 12/12/16 12/12/16 History (formulary)] [place]-3/Dha/Epa/Fish Oil [Fish Oil 1 cap PO DAILY 12/12/16 12/12/16 History 500 mg Softgel] Allergies Allergy/AdvReac Type Severity Reaction Status Date / Time No Known Allergies Allergy Verified 12/12/16 20:06 Surgical - Exam Osteopathic Statement: *. No significant issues noted on an osteopathic structural exam other than those noted in the History and Physical/Consult. Vital Signs Temp Pulse Resp BP Pulse Ox 98.5 F 84 18 132/83 99 12/12/16 19:44 12/12/16 19:44 12/12/16 19:44 12/12/16 19:44 12/12/16 19:44 - General well developed, well nourished, no distress - Eyes normal ocular movement - Neck trachea midline - Respiratory normal respiratory effort, clear to auscultation - Cardiovascular Rhythm: regular - Abdomen Abdomen: soft, tender, no surgical scars, no guarding (Very minimal), no rigid, no rebound Hernia: no umbilical - Psychiatric oriented to time, oriented to person, oriented to place, speech is normal, memory intact Results - Labs 12/13/16 05:46 12/13/16 05:46 Abnormal Lab Results - Last 24 Hours (Table) 12/12/16 12/12/16 12/13/16 Range/Units 20:45 20:45 05:46 RBC 4.12 L (4.30-5.90) m/uL Chloride 109 H (98-107) mmol/L AST (17-59) U/L ALT (21-72) U/L Total Protein (6.3-8.2) g/dL Albumin (3.5-5.0) g/dL Amylase <30 L (30-110) U/L Urine Protein Trace H (Negative) Urine Ketones Trace H (Negative) 12/13/16 Range/Units 05:46 RBC (4.30-5.90) m/uL Chloride 111 H (98-107) mmol/L AST 14 L (17-59) U/L ALT 19 L (21-72) U/L Total Protein 5.7 L (6.3-8.2) g/dL Albumin 3.2 L (3.5-5.0) g/dL Amylase (30-110) U/L Urine Protein (Negative) Urine Ketones (Negative) Diabetes panel 12/12/16 12/13/16 Range/Units 20:45 05:46 Sodium 145 143 (137-145) mmol/L Potassium 3.9 3.7 (3.5-5.1) mmol/L Chloride 109 H 111 H (98-107) mmol/L Carbon Dioxide 25 25 (22-30) mmol/L BUN 12 11 (9-20) mg/dL Creatinine 0.80 0.89 (0.66-1.25) mg/dL Glucose 83 76 (74-99) mg/dL Calcium 9.5 8.5 (8.4-10.2) mg/dL AST 17 14 L (17-59) U/L ALT 28 19 L (21-72) U/L Alkaline Phosphatase 63 50 (38-126) U/L Total Protein 6.8 5.7 L (6.3-8.2) g/dL Albumin 4.3 3.2 L (3.5-5.0) g/dL Calcium panel 12/12/16 12/13/16 Range/Units 20:45 05:46 Calcium 9.5 8.5 (8.4-10.2) mg/dL Albumin 4.3 3.2 L (3.5-5.0) g/dL Pituitary panel 12/12/16 12/13/16 Range/Units 20:45 05:46 Sodium 145 143 (137-145) mmol/L Potassium 3.9 3.7 (3.5-5.1) mmol/L Chloride 109 H 111 H (98-107) mmol/L Carbon Dioxide 25 25 (22-30) mmol/L BUN 12 11 (9-20) mg/dL Creatinine 0.80 0.89 (0.66-1.25) mg/dL Glucose 83 76 (74-99) mg/dL Calcium 9.5 8.5 (8.4-10.2) mg/dL Adrenal panel 12/12/16 12/13/16 Range/Units 20:45 05:46 Sodium 145 143 (137-145) mmol/L Potassium 3.9 3.7 (3.5-5.1) mmol/L Chloride 109 H 111 H (98-107) mmol/L Carbon Dioxide 25 25 (22-30) mmol/L BUN 12 11 (9-20) mg/dL Creatinine 0.80 0.89 (0.66-1.25) mg/dL Glucose 83 76 (74-99) mg/dL Calcium 9.5 8.5 (8.4-10.2) mg/dL Total Bilirubin 0.3 0.8 (0.2-1.3) mg/dL AST 17 14 L (17-59) U/L ALT 28 19 L (21-72) U/L Alkaline Phosphatase 63 50 (38-126) U/L Total Protein 6.8 5.7 L (6.3-8.2) g/dL Albumin 4.3 3.2 L (3.5-5.0) g/dL - Imaging CT scan - abdomen: report reviewed, image reviewed (Likely mucocele) Assessment and Plan (1) Abdominal pain Status: Acute Plan: With a prolonged history, along with no fevers, chills, leukocytosis, 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 Chance of malignancy is fairly low however that can be quite serious. He began to be very anxious when trying to discussing the procedures and complications. He asked that we just "knock came out" and do the procedure. I did discuss the procedure risks and complications along with usual postoperative course and will do this for him today.
[2016-12-13] MEDS: SODIUM CHLORIDE 0.9% 1,000 ML IV SCH ×3 (10:35→16:18)
[2016-12-13] MEDS ORDERED: IV FLUID CONTINUATION 1,000 ML IV ONE (13:18)
[2016-12-13] MEDS ORDERED: MIDAZOLAM 2 MG/2 ML VIAL IV ONE (13:34)
[2016-12-13] MEDS ORDERED: SUCCINYLCHOLINE CHLORIDE 100 MG/5 ML SYR IV ONE (14:13)
[2016-12-13] MEDS ORDERED: PROPOFOL 10 MG/ML 20 ML VIAL IV ONE (14:13)
[2016-12-13] MEDS ORDERED: GLYCOPYRROLATE 0.2 MG/ML 2 ML VIAL ONE (14:13)
[2016-12-13] MEDS ORDERED: NEOSTIGMINE 1 MG/ML 10 ML VIAL ONE (14:13)
[2016-12-13] MEDS ORDERED: KETOROLAC 30 MG/ML 1 ML VIAL ONE (14:13)
[2016-12-13] MEDS ORDERED: LIDOCAINE 1% INJ 10MG/ML (20 ML MDV) ONE (14:13)
[2016-12-13] MEDS ORDERED: fentaNYL (PF) 50 MCG/ML 2 ML AMP ONE (14:13)
[2016-12-13] MEDS ORDERED: MIDAZOLAM 2 MG/2 ML VIAL ONE (14:13)
[2016-12-13] MEDS ORDERED: ROCURONIUM BROMIDE 10 MG/ML 10 ML VIAL IV ONE (14:13)
[2016-12-13] MEDS ORDERED: PIPERACILLIN-TAZOBACTAM 3.375 GM in DEXTROSE/WATER 1 50ML.BAG IVPB STA (14:43)
[2016-12-13] MEDS ORDERED: LIDOCAINE 1%-EPI 1:100,000 20 ML VIAL SQ ONE ×2 (14:45)
[2016-12-13] MEDS ORDERED: LACTATED RINGERS 1,000 ML IV ONE (15:08)
--- NOTE | 2016-12-13 15:12 | P.OP ---
Date of Procedure: 12/13/16 Preoperative Diagnosis: Abdominal pain, mucocele of the appendix Postoperative Diagnosis: Same Procedure(s) Performed: Laparoscopic appendectomy Implants: Anesthesia: ERNESTO Surgeon: Gail Scales Estimated Blood Loss (ml): 5 Pathology: other Condition: stable (Appendix) Disposition: PACU Indications for Procedure: The patient had presented to the ER at both hospitals with abdominal pain. He left twice AMA. He had workup showing distention of the appendix. He had normal white count and no fevers. No nausea or vomiting. Operative Findings: Description of Procedure: The patient's taken the operative suite was prepped and draped in the usual sterile manner under a general endotracheal anesthetic. An infraumbilical incision is made. A varies needle was placed into the abdominal cavity. Pneumoperitoneum was established with CO2 gas. Sites were chosen for accessory trochars and these are placed through small skin incisions. The abdominal and pelvic contents were examined with findings of distention at the tip of the appendix. The mesial appendix was divided with harmonic scissors down to the base. The base of the appendix and a small portion of the cecum, were then transected with a linear stapler device. The specimen was placed into a specimen retrieval bag. The stump of the appendix was examined and noted to be hemostatic. The excess irrigant was suctioned out. The pneumoperitoneum was released. The trochars were removed. The fascia at the umbilicus was closed with 4-0 Vicryl. The skin was closed with ranjan. He tolerated the procedure without difficulty and was taken recovery room in satisfactory condition.
[2016-12-13] MEDS ORDERED: HYDROcodone/APAP 5-325MG 1 EACH TAB PO PRN ×2 (15:13→15:33)
[2016-12-13] MEDS ORDERED: METOCLOPRAMIDE 5 MG/ML 2 ML VIAL IVP PRN (15:13)
[2016-12-13] MEDS ORDERED: ONDANSETRON 4 MG/2 ML VIAL IVP ONE (15:28)
[2016-12-13] MEDS ORDERED: HYDROmorphone 1 MG/ML 1 ML SYRINGE IVP ONE (15:31)
[2016-12-13] MEDS ORDERED: PIPERACILLIN-TAZOBACTAM 3.375 GM in DEXTROSE/WATER 1 50ML.BAG IVPB SCH (16:00)
[2016-12-13 18:45] VITALS: BP 128/78; PULSE 70; RESP 16; TEMP 98
[2016-12-13] MEDS ORDERED: FAMOTIDINE 20 MG TAB PO SCH (21:00)
--- NOTE | 2016-12-18 14:24 | P.DS ---
Providers Date of admission: 12/12/16 23:27 Attending physician: Gail Scales Primary care physician: Neil Portillo - Discharge Diagnosis(es) (1) Abdominal pain Status: Acute Hospital Course: The patient presented with abdominal pain. He left AMA from both facilities within the previous few days. Left the preop holding area at [facility] the previous day. He returned and a CT showed a dilated appendix. This was felt most likely to be a mucocele. He was given preoperative counseling. He underwent laparoscopic appendectomy. He then left AMA. Patient Condition at Discharge: Undetermined Plan - Discharge Summary New Discharge Prescriptions: No Action Multivitamins, Thera [Multivitamin (formulary)] 1 tab PO DAILY [place]-3/Dha/Epa/Fish Oil [Fish Oil 500 mg Softgel] 1 cap PO DAILY Discharge Medication List Multivitamins, Thera [Multivitamin (formulary)] 1 tab PO DAILY 12/12/16 [History ] [place]-3/Dha/Epa/Fish Oil [Fish Oil 500 mg Softgel] 1 cap PO DAILY 12/12/16 [ History] Follow up Appointment(s)/Referral(s): Neil Portillo DO [Primary Care Provider] - 1-2 days Discharge Disposition: Left Against Medical Advice
== END 2016-12-13 21:01 | disposition left against medical advice (07) ==
LOC: EC 19:38 → 5MS5E 23:27 → INTOOBSV 23:27
PROVIDERS: ADMIT Surgery; ATTEND Surgery
DX: C7A.020 Malignant carcinoid tumor of the appendix (principal); K35.80 Unspecified acute appendicitis; K51.90 Ulcerative colitis, unspecified, without complications; Z98.1 Arthrodesis status; F17.200 Nicotine dependence, unspecified, uncomplicated; F41.9 Anxiety disorder, unspecified; I10 Essential (primary) hypertension; Z83.79 Family history of other diseases of the digestive system
CPT/HCPCS: 44970; 96376; 96366; 96375 ×2; 96361; 96365; 99285; 36415; 88304; 80053 ×2; 82150; 83605; 83690; 85025 ×2; 81003; 88342; 87040; 88341; 74177; G0378 ×2; J2250; J2060 ×2; J2270 ×2; J2710; J2405 ×2; J2001; J3010; J1885 ×2; J1170; J2543 ×2; Q9967; J0330; J2704